=== PATIENT | male | born 1940 | race Hispanic/Latino ===

== ENCOUNTER 2017-04-02 09:00 | Day surgery (SDC) | payer MEDICARE ==
[2017-03-28 11:28] VITALS: BP 136/71
[2017-03-28 11:34] LABS: BASOPHILS % (AUTO) 1.2 % (0.0-5.0); EOSINOPHILS % (AUTO) 5.8 % (0.0-8.0); HEMATOCRIT 37.8 % (42-54); LYMPHOCYTES % (AUTO) 23.1 % (21.0-51.0); MEAN CORPUSCULAR HGB CONC 33.5 g/dL (32.0-36.0); MEAN CORPUSCULAR VOLUME 89.6 fL (79-99); MONOCYTES % (AUTO) 6.3 % (3.0-13.0); NEUTROPHILS % (AUTO) 63.6 % (40.0-77.0); PLATELET COUNT (AUTO) 172 K/uL (130-400); RED BLOOD CELL COUNT(AUTO) 4.22 MIL/uL (4.50-6.20); RED CELL DISTRIBUTION WIDTH 13.9 % (11.0-15.5); WHITE BLOOD COUNT (AUTO) 6.5 K/uL (4.8-10.8)
[2017-03-28 11:42] LABS: CREATININE 1.7 mg/dL (0.5-1.5); POTASSIUM 4.7 mmol/L (3.5-5.1)
[2017-04-02] VITALS (14 sets, daily range): BP systolic 138–181; BP diastolic 62–91
[~2017-04-02] VITALS: Ht 166.4 cm; Wt 90.7 kg
[~2017-04-02 09:00] MED LIST: ASPI-1181 PO; CARV12.511 PO; GABA-533 PO; INSREG SQ; INSU100V12 SQ; LACTATED RINGERS 1000ML 1,000 ML IV SCH; LEVO25TA54 PO; LOSA1TAB42 PO; METO25TA6 PO; ROPI0.255 PO; SIMV20TA6 PO; SOLI10TA PO; TRAM-355 PO
[2017-04-02] MEDS ORDERED: SODIUM CHLORIDE 0.9% 1000ML 1,000 ML IV ONE (09:18)
[2017-04-02] MEDS: CEFAZOLIN SODIUM 1 GM VIAL IVP SCH ×2 (09:30→10:30)
[2017-04-02] MEDS ORDERED: WATER FOR INJECTION,STERILE 20 ML VIAL ONE (09:36)
[2017-04-02] MEDS ORDERED: MIDAZOLAM HCL 1 MG/ML 2ML VIAL ONE (10:17)
[2017-04-02] MEDS ORDERED: LIDOCAINE PF 2% 5ML ABBOJECT ONE (10:17)
[2017-04-02] MEDS ORDERED: DEXAMETHASONE SOD PHOSPHATE 10MG/ML 1ML VIAL ONE (10:17)
[2017-04-02] MEDS ORDERED: PROPOFOL 10 MG/ML 20ML VIAL IV ONE (10:17)
[2017-04-02] MEDS ORDERED: FENTANYL CITRATE PF 50 MCG/1 ML 2ML VIAL ONE (10:17)
[2017-04-02] MEDS ORDERED: ONDANSETRON HCL 4 MG/2 ML VIAL ONE (10:17)
[2017-04-02] MEDS ORDERED: GLYCOPYRROLATE 0.2 MG/ML 5 ML VIAL ONE (10:17)
[2017-04-02] MEDS ORDERED: LIDOCAINE HCL 2% PF 20 ML JEL DISP.SYRIN MM ONE (10:35)
[2017-04-02] MEDS ORDERED: HYDRALAZINE HCL 20 MG/ML VIAL ONE (11:48)
== END 2017-04-02 13:10 | disposition home or self-care (01) ==
LOC: DAH 09:00 → SUH 09:00
PROVIDERS: ATTEND Surgery
DX: R31.0 Gross hematuria (principal); I12.9 Hypertensive chronic kidney disease with stage 1 through stage 4 chronic kidney disease, or unspecified chronic kidney disease; E11.22 Type 2 diabetes mellitus with diabetic chronic kidney disease; N18.4 Chronic kidney disease, stage 4 (severe); E11.29 Type 2 diabetes mellitus with other diabetic kidney complication; E11.42 Type 2 diabetes mellitus with diabetic polyneuropathy; N28.9 Disorder of kidney and ureter, unspecified; E03.9 Hypothyroidism, unspecified; E78.5 Hyperlipidemia, unspecified; M19.90 Unspecified osteoarthritis, unspecified site; Z98.890 Other specified postprocedural states; Z79.82 Long term (current) use of aspirin; Z79.4 Long term (current) use of insulin
CPT/HCPCS: 36415; 52214; 80048; 82948 ×2; 85025; 87088; 88108; 93005; A4344 ×2; A4358; A5113; J0360; J0690; J1100; J2001; J2250; J2405; J2704; J3010; J3490; J7030; J7120